=== PATIENT | male | born 1995 | race Caucasian/White ===

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

== ENCOUNTER 2022-01-04 20:25 | Day surgery (SDCO) | payer OTHER ==
[~2022-01-04] VITALS: Ht 170.2 cm; Wt 70.5 kg
[~2022-01-04 20:25] MED LIST: BACTRIM DS TAB1 EACH PO; IBUPROFEN800 MG PO
[2022-01-04 21:06] LABS: BASOPHIL 0.2 % (0-2); EOSINOPHIL 0.1 % (0-5); HCT 43.2 % (42.0-52.0); LYMPHOCYTE 12.5 % (15-48); MCH 30.4 pg (25.0-31.0); MCV 82.1 fL (78.0-100.0); MONOCYTE 8.8 % (0-12); MPV 10.8 fL (6.0-9.5); NRBC 0; PLT 233 K/uL (150-400); RBC 5.26 M/uL (4.70-6.00); WBC 9.5 K/uL (4.0-10.5)
[2022-01-04 21:40] LABS: ALBUMIN 4.7 g/dL (3.4-5.0); ALKALINE PHOSHATASE 63 U/L (46-116); ALT 51 U/L (16-63); AST 26 U/L (15-37); BILIRUBIN - TOTAL 1.2 mg/dL (0.2-1.0); BUN 20 mg/dL (7-18); BUN/CREAT RATIO (CALC) 14.7 RATIO; CHLORIDE 100 mmol/L (98-107); CO2 (BICARBONATE) 25 mmol/L (21-32); CREATININE 1.36 mg/dL (0.67-1.17); GLOBULIN (CALCULATION) 3.7 g/dL; GLUCOSE 112 mg/dL (74-106); MAGNESIUM 2.3 mg/dL (1.8-2.4); POTASSIUM 3.8 mmol/L (3.5-5.1); TOTAL PROTEIN 8.4 g/dL (6.4-8.2)
[2022-01-04 21:41] LABS: ACETAMINOPHEN (TYLENOL) < 2.0 ug/mL (10.0-30.0)
[2022-01-05] MEDS ORDERED: BUPROPION XL150 MG PO (01:01)
[2022-01-05] MEDS ORDERED: TRAZODONE 100M100 MG PO (01:02)
[2022-01-05] MEDS ORDERED: BUSPIRONE HCL10 MG PO (01:02)
[2022-01-05 02:54] LABS: BILIRUBIN NEGATIVE (NEGATIVE); BLOOD NEGATIVE Ery/uL (NEGATIVE); CLARITY CLEAR (CLEAR); COLOR YELLOW (YELLOW); GLUCOSE (U) NORMAL (NORMAL); LEUKOCYTES NEGATIVE Leu/uL (NEGATIVE); NITRITE NEGATIVE (NEGATIVE); PROTEIN NEGATIVE (NEGATIVE); SPECIFIC GRAVITY >=1.030 (1.001-1.030)
[2022-01-05 03:04] LABS: AMPHETAMINES NEGATIVE (NEGATIVE); BARBITURATES NEGATIVE (NEGATIVE); ECSTASY (MDMA) NEGATIVE (NEGATIVE); MARIJUANA (THC) NEGATIVE (NEGATIVE); METHADONE NEGATIVE (NEGATIVE); OPIATES NEGATIVE (NEGATIVE); OXYCODONE NEGATIVE (NEGATIVE)
[2022-01-05 06:02] LABS: ALBUMIN 3.7 g/dL (3.4-5.0); BILIRUBIN - TOTAL 1.1 mg/dL (0.2-1.0); BUN/CREAT RATIO (CALC) 10.8 RATIO; CREATININE 1.3 mg/dL (0.67-1.17); GLOBULIN (CALCULATION) 2.8 g/dL; POTASSIUM 3.7 mmol/L (3.5-5.1); TOTAL PROTEIN 6.5 g/dL (6.4-8.2)
[2022-01-06 06:02] LABS: BUN/CREAT RATIO (CALC) 7.6 RATIO; CREATININE 1.19 mg/dL (0.67-1.17); POTASSIUM 3.4 mmol/L (3.5-5.1)
--- NOTE | 2022-01-07 13:34 | NUR ---
01/07 Mr. Mccoy was admitted after an intentional overdose. He recently broke up with his girlfriend. 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 Mr. Mccoy lives with his mother. - He denies drug / etoh use. - He was transferred to [facility]. Mr. Mccoy was advised to go to the nearest ED should he experience suicidal ideations in the future. He was provided with counseling services and a crisis hotline #.
== END 2022-01-07 11:38 | disposition other institution (70) ==
LOC: FER 20:25 → FTCU 22:01
PROVIDERS: Family Medicine; Nurse Practitioner Acute Care; Physician Assistant; ADMIT Internal Medicine
DX: T43.212A Poisoning by selective serotonin and norepinephrine reuptake inhibitors, intentional self-harm, initial encounter (principal); T43.292A Poisoning by other antidepressants, intentional self-harm, initial encounter; T39.312A Poisoning by propionic acid derivatives, intentional self-harm, initial encounter; R11.0 Nausea; R51.9 Headache, unspecified; N17.9 Acute kidney failure, unspecified; F32.A Depression, unspecified; F41.9 Anxiety disorder, unspecified; Z20.822 Contact with and (suspected) exposure to COVID-19
CPT/HCPCS: 36415; 80048; 80053; 80305; 81003; 83735; 85025; 93005; G0378; G0480; J2405; J7030; U0002